=== PATIENT | female | born 1955 | race Caucasian/White ===

== ENCOUNTER → 2019-06-29 14:22 | Outpatient (CLI) | payer OTHER, SELFPAY ==
--- NOTE | 2019-06-29 14:29 | RAD_ITS ---
STUDY: X-RAY - LUMBAR SPINE REASON FOR EXAM: Female, 63 years old. Atraumatic lumbar spine pain. TECHNIQUE: 3 view(s) of the lumbar spine were obtained. COMPARISON: None FINDINGS: Generalized osteopenia. Normal lumbar lordosis. There is no substantial scoliosis. There is a normal alignment of the vertebrae. Normal vertebral bodies and endplates. Intervertebral disc space narrowing at L3-4, L4-5 and L5-S1. Diffuse facet sclerosis. Cholecystectomy clips. RAD/Lumbar Spine 2 or 3 Views IMPRESSION: Osteopenia with mild lower lumbar spondylosis. Electronically Signed: Tej Joe MD at 16:35 EST , Service support ,
== END ==
PROVIDERS: Family Provider Family Medicine; PCP Family Medicine; Referring Provider Anesthesiology Pain Medicine; Visit Provider Anesthesiology Pain Medicine
DX: M54.9 Dorsalgia, unspecified (principal)
CPT/HCPCS: 72100

== ENCOUNTER 2019-10-16 23:26 | Emergency (ER) | payer OTHER, SELFPAY ==
[2019-10-16 23:27] VITALS: BP 152/82; PULSE 103; RESP 15; TEMP 36.4; O2SAT 97; BMI 31.1
--- NOTE | 2019-10-16 23:36 | RAD_ITS ---
HISTORY: fell tonight, hip pain EXAMINATION/TECHNIQUE: XR AP pelvis and left hip 3 views COMPARISON: None FINDINGS: No fracture, dislocation, or acute osseous abnormality. The sacroiliac and hip joints appear preserved. As visualized, the soft tissues are negative. RAD/HIP, UNI W/ Pelvis 2-3 Views IMPRESSION: Negative for fracture or acute osseous abnormality. at 0051 Reported and signed by: Mario Hendrix MD Electronically Signed: Mario Hendrix, at 0:50 EST Tel , Service support ,
--- NOTE | 2019-10-16 23:36 | RAD_ITS ---
HISTORY: fell tonight,knee pain EXAMINATION/TECHNIQUE: XR left knee 4 views COMPARISON: None FINDINGS: Left total knee arthroplasty. The prosthetic components appear in good position. No fracture, dislocation, or prosthetic loosening identified. Normal bony alignment. No significant effusion identified. Superficial varix of the medial knee. RAD/Knee 4 or More Views IMPRESSION: 1. No fracture or acute osseous abnormality. 2. Left knee arthroplasty. No complication seen. 3. Superficial varix of the medial knee. at 0055 Reported and signed by: Mario Hendrix MD Electronically Signed: Mario Hendrix, at 0:54 EST Tel , Service support ,
--- NOTE | 2019-10-16 23:37 | ED.VIS.GEN ---
History of Present Illness Chief Complaint: Lower Extremity Injury Narrative: Patient is a 63-year-old female who presents with left knee and hip pain. She has been having increased left knee pain for about 2 weeks. She was line dancing tonight. She began to develop left hip pain. There was no fall, trauma, injury. She did take ibuprofen about 2 hours ago and has had no relief. No numbness, tingling, weakness. She denies any recent illness. Past Medical History - Allergies and Home Meds Allergies/Adverse Reactions: Allergies No Known Allergies Allergy (Verified 10/16/19 23:26) Primary Care Physician: Reno Beckett MD [Primary Care Provider] - Past Medical History: - - Hypertension Review of Systems All systems negative except as indicated General: Denies: Fever Cardiovascular: Denies: Chest pain Respiratory: Denies: Dyspnea Gastrointestinal: Denies: Nausea, Vomiting Musculoskeletal: Reports: - - Left hip and knee pain Skin: Denies: Rash Neurological: Denies: Headache Allergy: Denies: Uticaria Physical Exam Vital Signs/Narrative: Vital Signs Temp Pulse Resp BP Pulse Ox 10/16/19 23:27 97.6 F L 103 H 15 152/82 H 97 Inital Vital Signs reviewed: Yes General: Well nourished Head: Normocephalic Eyes: EOMI ENT: Moist mucous membranes Neck: Supple Cardiovascular: Regular rate Respiratory: No distress Extremities: - - Active full range of motion of the left hip and the left knee, I do not appreciate soft tissue swelling. Brisk capillary refill distally and normal sensation light touch easily palpable dorsalis pedis pulse, no focal bony tenderness patient does complain of pain with passive range of motion of the left hip and knee Neurological: Alert Psychological: Normal affect Diagnostic/Tx/Re-eval Impressions Hip/Pelvis X-Ray 10/16/19 23:36 IMPRESSION: Negative for fracture or acute osseous abnormality. at 0051 Reported and signed by: Mario Hendrix MD Electronically Signed: Mario Hendrix, at 0:50 EST Tel , Service support , Knee X-Ray 10/16/19 23:36 IMPRESSION: 1. No fracture or acute osseous abnormality. 2. Left knee arthroplasty. No complication seen. 3. Superficial varix of the medial knee. at 0055 Reported and signed by: Mario Hendrix MD Electronically Signed: Mario Hendrix, at 0:54 EST Tel , Service support , 10/16/19 23:36 HIP, UNI W/ Pelvis 2-3 Views [RAD] Stat Knee 4 or More Views [RAD] Stat - Medical Decision Making Imaging as above shows no acute fractures. Patient was given a [place] here. We will start her on naproxen and also provided a short course of [place] for right ear pain. She understands to return for new or worsening symptoms. She was also advised on supportive care. She was advised to follow-up with primary care physician and was discharged home. ED Disposition - Plan for ED Patient: Disposition: Home or Assisted Living Diagnosis: Hip sprain, Knee sprain Instructions: Knee Sprain, Hip Strain Prescriptions: Naproxen [Naprosyn] 500 mg PO BID #20 tablet Hydrocodone Bitart/Apap 5-325 [Rosed[place] 5MG-325MG] 1 tablet PO Q6H PRN PRN 3 Days #10 tablet PRN Reason: Pain Referrals: Reno Beckett MD [Primary Care Provider] -
[2019-10-17] MEDS: HYDROcodone Bitartrate/Apap 5/325 Tablet PO (01:07)
[2019-10-17 01:11] VITALS: BP 145/76; PULSE 78; RESP 18; O2SAT 98
== END 2019-10-17 01:44 | disposition home or self-care (01) ==
PROVIDERS: Emergency Provider Emergency Medicine; PCP Family Medicine
DX: S73.102A Unspecified sprain of left hip, initial encounter (principal); S83.92XA Sprain of unspecified site of left knee, initial encounter; Y93.41 Activity, dancing; I10 Essential (primary) hypertension; Z79.899 Other long term (current) drug therapy
CPT/HCPCS: 73502; 73564; 99283

== ENCOUNTER → 2021-03-23 15:26 | Outpatient (CLI) | payer OTHER, SELFPAY ==
--- NOTE | 2021-03-23 15:31 | RAD_ITS ---
STUDY: X-RAY - LUMBAR SPINE REASON FOR EXAM: Female, 65 years old. Low back pain TECHNIQUE: 3 view(s) of the lumbar spine were obtained. COMPARISON: 2018 FINDINGS: Normal lumbar lordosis. There is a levoscoliosis of the lumbar spine. There is a normal alignment of the vertebrae in the lateral view. There is multilevel endplate spondylosis of the lumbar vertebrae. There is multi-level degenerative disc disease with multi-level disc space narrowing. There is no demonstrated fracture. The soft tissue structures are unremarkable. RAD/Lumbar Spine 2 or 3 Views IMPRESSION: Degenerative changes of the spine, as detailed above. Levoscoliosis Electronically Signed: Nadir Hernandez MD at 13:47 EDT , Service support ,
== END ==
PROVIDERS: PCP Family Medicine; Referring Provider Anesthesiology Pain Medicine; Visit Provider Anesthesiology Pain Medicine
DX: M54.5 Low back pain (principal)
CPT/HCPCS: 72100

== ENCOUNTER → 2021-04-14 09:49 | Outpatient (CLI) | payer OTHER, SELFPAY ==
--- NOTE | 2021-04-14 09:57 | US_ITS ---
STUDY: RENAL ULTRASOUND - COMPLETE REASON FOR EXAM: Female, 65 years old. Recurrent UTIs. TECHNIQUE: Ultrasound evaluation of the kidneys was performed with real-time and static alexander-scale imaging. COMPARISON: None. FINDINGS: RIGHT KIDNEY: Normal location of the right kidney, which is normal in size. The right kidney measures 10.1 cm x 5 cm x 5.6 cm. There is a normal cortex of the right kidney. The renal cortex measures 1.7 cm. There is no right renal mass or cyst. There are no right renal calculi. There is no right hydronephrosis. DISTAL RIGHT URETER: There is non-visualization of the distal right ureter. There is no demonstrated right ureterovesical junction calculus. There is a visualized right ureteral jet. LEFT KIDNEY: Normal location of the left kidney, which is normal in size. The left kidney measures 10.5 cm x 4.6 x 2 x 4.9 cm. There is a normal cortex of the left kidney. The renal cortex measures 1.3 cm. There is no left renal mass or cyst. There are no left renal calculi. There is no left hydronephrosis. DISTAL LEFT URETER: There is non-visualization of the distal left ureter. There is no demonstrated left ureterovesical junction calculus. There is a visualized left ureteral jet. BLADDER: The distended urinary bladder has a volume of 53 ml. Limited evaluation due to suboptimal distention of the urinary bladder. US/Kidney and Bladder IMPRESSION: Normal ultrasound of the kidneys. Electronically Signed: Gene Amanda MD at 12:57 EDT , Service support ,
== END ==
PROVIDERS: PCP Family Medicine; Referring Provider Urology; Visit Provider Urology
DX: N39.0 Urinary tract infection, site not specified (principal)
CPT/HCPCS: 76770

== ENCOUNTER → 2021-04-20 16:54 | Outpatient (CLI) | payer OTHER, SELFPAY ==
--- NOTE | 2021-04-20 17:01 | MRI_ITS ---
STUDY: MRI LUMBAR SPINE WITHOUT CONTRAST REASON FOR EXAM: Female, 65 years old. BACK PAIN LEG PAIN TECHNIQUE: Standardized fat and water weighted pulse sequences were obtained in the sagittal and axial planes. COMPARISON: Lumbar spine radiographs 03/23/2021. FINDINGS: T10-T11, T11-T12 and T12-L1: (Sagittal only). Normal endplates. Mild disc space height narrowing. No ventral extradural defect. Normal central canal and bilateral intervertebral neural foramina. Normal lumbar lordosis. There is no substantial scoliosis. Normal conus medullaris that terminates at the lower L1 vertebral body level. L1-2: Normal endplates. Normal disc height, hydration and morphology. Normal bilateral facet joints. Normal central canal and bilateral lateral recesses. Normal bilateral intervertebral neural foramina. L2-3: MODIC type I and type II degenerative changes of the vertebral marrow underneath the irregular vertebral endplates. Pronounced disc space height narrowing. Prominent posterior marginal spurs causing flattening central canal stenosis. The AP canal diameter is 8.5 mm. Normal bilateral lateral recesses. Moderate degenerative facet arthropathy. Mild stenosis of the right intervertebral neural foramen. Normal left intervertebral neural foramen. L3-4: Anterior marginal spurs. Normal endplates. Moderately pronounced disc space height narrowing. Small posterior annular bulging disc. Prominent dorsal epidural lipomatosis. Mild bilateral degenerative facet arthropathy. Normal central canal and bilateral lateral recesses. Normal bilateral intervertebral neural foramina. L4-5: Normal endplates. Moderate disc space height narrowing. Mild degenerative anterolisthesis of L4 on L5. Small posterior cephalad disc protrusion. Mild central canal stenosis with an AP canal diameter 10 mm. Moderately pronounced right degenerative facet arthropathy and moderate left degenerative facet arthropathy. Mild stenosis of the left intervertebral neural foramen. Normal right intervertebral neural foramen. L5-S1: Normal endplates. Mild disc space height narrowing. Moderately pronounced asymmetric bilateral degenerative facet arthropathy, left greater than right. Normal central canal and bilateral lateral recesses. Normal bilateral intervertebral neural foramina. Normal visualized sacral ala. Normal visualized paraspinous soft tissue structures. MRI/Spine Lumbar (Routine) IMPRESSION: 1. Mild flattening central canal stenosis at L2-L3 disc space level with an AP canal diameter of 8.5 mm, mild stenosis of the right intervertebral neural foramen and pronounced L2-L3 disc space height narrowing with mixed MODIC type I and type II degenerative changes of the vertebral marrow underneath the right intervertebral endplates. 2. Mild central canal stenosis at L4-L5 disc space level with an AP canal diameter of 10 mm, mild degenerative anterolisthesis of L4 on L5 and small posterior midline cephalad disc protrusion. 3. Moderately pronounced asymmetric bilateral L5-S1 degenerative facet arthropathy, left greater than right. 4. No MRI evidence of lumbar extruded disc fragment. Electronically Signed: Kei Herrmann MD at 11:34 EDT , Service support ,
== END ==
PROVIDERS: PCP Family Medicine; Referring Provider Anesthesiology Pain Medicine; Visit Provider Anesthesiology Pain Medicine
DX: M54.16 Radiculopathy, lumbar region (principal); M54.17 Radiculopathy, lumbosacral region; M51.36 Other intervertebral disc degeneration, lumbar region; M51.37 Other intervertebral disc degeneration, lumbosacral region
CPT/HCPCS: 72148

== ENCOUNTER → 2022-01-03 | Outpatient (CLI) | payer OTHER, SELFPAY | END | disposition home or self-care (01) | PROVIDERS: PCP Family Medicine; Referring Provider Anesthesiology Pain Medicine; Visit Provider Anesthesiology Pain Medicine | DX: F11.20 Opioid dependence, uncomplicated (principal) ==

== ENCOUNTER → 2022-04-27 | Outpatient (CLI) | payer OTHER, SELFPAY | END | disposition home or self-care (01) | LOC: LAB 16:44 | PROVIDERS: PCP Family Medicine; Referring Provider Urology; Visit Provider Urology | DX: N39.0 Urinary tract infection, site not specified (principal); R30.0 Dysuria | CPT/HCPCS: 87086 ==

== ENCOUNTER 2022-05-08 16:30 | Outpatient (RCR) | payer OTHER, SELFPAY ==
--- NOTE | 2022-04-06 07:50 | HP.PTEVAL ---
Patient's Visit Information KARON EL is a 66 year old F referred to Physical Therapy by Dr. Chris Nieves MD with a diagnosis of Back pain. Date of Evaluation: 04/06/22 Physical Therapist: Lorenzo Farah DPT, OCS, CSCS - Visit Plan Frequency: 3x /Week Duration: 4-6 Weeks Plan: 3x/week for 4-6 weeks for. 1. LB ROM exercises. 2. rollout and stretch quad and HS and teach home stretches. 3. core strength and progress HEP, NS focus. 4. general machine strength LE and posture/core and progress to I. MH as helpful - Subjective LBP years and chronic , MRI has shown L45 problems. Up to 03/04 and 11/02 when on tramadol. Has slept in recliner as it is more comfortable for the last year. Has been treated with back injections for years for 3 months,. HE Wants her to see a back doctor but does not wish to do so. 2 TKA and L knee hurts. had MRI on R knee as it is swelling on the outside and R foot starting to drop. Has seen chiropractor and had body mechanics instruct. No exercises. 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 Will retire in january 2023. Hobbies included walking but has not been able to do that due to back and R leg and has not in 3 moihs, Used to walk 2 miles per day. Live with sig other, steps to enter one story house and 4 steps to enter with rail and no problem. Basic ADLs are getting done OK right now, hard to put shoes on due to bending stiff and painful. No numbness or tingling. - Pain LBP Pain Intensity (Out of 10): 3 Pain Intensity Range: 3, 8 - Objective Pateint ambulates I, transfer bed and chair I but hard to lie flat on bed, slighlty better with knees bent. Steps are reciprocal without rail has flat lordosis and is stiff in LB. Has R foot DF weakness. LN AROM ext max limited, flexion mod limited, SB B min limited, ext painful, fleion stiff. HS and quads mod tight, tender to palpation lateral R knee. L Df 25# and R is 50#, other strengths LE 4/5. core strength 3+/5. reflexes 2/3 patella and achilles. Sensation WNL to gross light touch in LE. - slump. - SLR - Balance/Special Test Scores Functional Gait Assessment Score: 28 % Disability: 6.6700 Oswestry Low Back Score: 19 - Goals Goal 1:: ST: Pain 2-3/10 at worst and 755 improved Goal Time Frame: 2-4 Weeks Goal 2:: I approp NS posture to manage pain Goal Time Frame: 2-4 Weeks Goal 3:: LT: 8 or less oswestry Goal Time Frame: 4-6 Weeks Goal 4:: I long filler cigar roller machine stretch, strength program and ROM to limit future problems. Goal Time Frame: 4-6 Weeks Goal 5:: Lie in bed comfortably without immediate discomfort. Goal Time Frame: 4-6 Weeks - Rehabilitation Potential Physical Therapy Diagnosis: Back pain Rehabilitation Potential: Good - Anticipated Interventions Patient/Client Instruction: Educate patient on: Condition, Plan of Care For the Purpose of:: To decrease pain, To increase ROM, To improve nutrient delivery to tissue, To improve muscle performance and motor function Therapeutic Exercise to Include: Strength training, Flexibilty training, Gait and locomotor training, Passive ROM, Active ROM, Dynamic Lumbar Stabilization For the Purpose of:: To decrease pain, To increase ROM, To improve nutrient delivery to tissue, To improve muscle performance and motor function Manual Therapy Techniques to Include: Mobilization, Soft tissue mobilization For the Purpose of:: To decrease pain, To increase ROM Thermo therapy (hot pack): Yes For the Purpose of:: To decrease pain Thank you for the opportunity to evaluate your patient. For Medicare and Medicare HMO plans, please review the plan of care and approve it. It will need to be FAXED BACK to us at [phone] for Medicare purposes. For Medicare only, by signing this I certify the plan of care. Please let me know if there are questions or concerns regarding this plan of care. Physician Signature: Date:
--- NOTE | 2022-05-08 17:28 | HP.PTDCSUM_ITS ---
It has been my pleasure to treat KARON EL referred by Dr. Chris Nieves MD, with the diagnosis of Back pain for a total of 13 visit(s). Discharge Date: 05/08/22 Please see the following information for a summary of their discharge status. Subjective: Overall body feeling much better. L knee not nearly as painful and not as stiff. LB is still in pain up to 7/10 until tramadol kicks in. Sleeps in bed on weekends but it makes her worse. Lizbeth wants her to see a back doctor. dre is more central. Bending over can hurt still.Sweeper and pulling we eds still hurt. Will get injection on thrusday. LBP Pain Intensity (Out of 10): 3 % Improvement: 30 Objective/Function: ROM is mod deficits flexion with pain, mod deficits ext with pain, SB are full and slight stretching. Overall feeling better in body but back still gives her fits and cannot lie in bed.Walks well. Goal 1:: ST: Pain 2-3/10 at worst and 755 improved Goal Progress: Progressing Goal 2:: I approp NS posture to manage pain Goal Progress: Goal Met, aware Goal 3:: LT: 8 or less oswestry Goal Progress: Progressing Goal 4:: I buttermaker continuous churn stretch, strength program and ROM to limit future problems. Goal Progress: Goal Met Goal 5:: Lie in bed comfortably without immediate discomfort. Goal Progress: Not Progressing Plan: d/c to gym adn HEP, pt looking forward to injection on Thrusday. If there are questions or concerns regarding this patient's physical therapy, please feel free to call me at [phone]. Thank you for the referral of this patient. Sincerely, Lorenzo Farah, DPT, OCS, CSCS Balance/Gait/Functional tests - Balance/Special Test Scores Functional Gait Assessment Score: 28 % Disability: 6.6700 Oswestry Low Back Score: 10
== END 2022-05-08 19:00 | disposition home or self-care (01) ==
LOC: PT 16:30
PROVIDERS: PCP Family Medicine; Referring Provider Anesthesiology Pain Medicine; Visit Provider Anesthesiology Pain Medicine
DX: M54.9 Dorsalgia, unspecified (principal)
CPT/HCPCS: 97110; 97140; 97161; 97164

== ENCOUNTER → 2023-02-06 | Outpatient (CLI) | payer OTHER, SELFPAY ==
[2023-02-06 12:48] LABS: Amphetamine Urine VISTA NEGATIVE (<1000 ng/mL); Barbiturate Urine VISTA NEGATIVE (< 200 ng/mL); Benzodiazepine Urine VISTA NEGATIVE (< 200 ng/mL); Cocaine Urine VISTA NEGATIVE (< 300 ng/mL); Ecstacy Urine VISTA NEGATIVE (< 500 ng/mL); Methadone Urine VISTA NEGATIVE (< 300 ng/mL); PCP Urine VISTA NEGATIVE (< 25 ng/mL); THC Urine VISTA NEGATIVE (< 50 ng/mL); Vista UDS pH Range 6
== END | disposition home or self-care (01) ==
PROVIDERS: PCP Family Medicine; Referring Provider Anesthesiology Pain Medicine; Visit Provider Anesthesiology Pain Medicine
DX: F11.20 Opioid dependence, uncomplicated (principal)
CPT/HCPCS: 80307

== ENCOUNTER 2023-02-21 08:00 | Outpatient (RCR) | payer OTHER, SELFPAY | END 2023-02-22 23:59 | LOC: DC 08:00 | PROVIDERS: PCP Family Medicine; Referring Provider Family Medicine; Visit Provider Family Medicine | DX: E11.65 Type 2 diabetes mellitus with hyperglycemia (principal); R14.3 Flatulence | CPT/HCPCS: 97802; 97803 ==

== ENCOUNTER 2023-03-27 08:59 | Outpatient (RCR) | payer MEDICARE, SELFPAY | END 2023-04-25 23:59 | LOC: DC 08:59 | PROVIDERS: PCP Family Medicine; Referring Provider Family Medicine; Visit Provider Family Medicine | DX: E11.65 Type 2 diabetes mellitus with hyperglycemia (principal); R14.3 Flatulence | CPT/HCPCS: 97803 ==

== ENCOUNTER 2023-05-08 08:00 | Outpatient (RCR) | payer MEDICARE, SELFPAY | END 2023-05-25 23:59 | LOC: DC 08:00 | PROVIDERS: PCP Family Medicine; Referring Provider Family Medicine; Visit Provider Family Medicine | DX: E11.65 Type 2 diabetes mellitus with hyperglycemia (principal); R14.3 Flatulence | CPT/HCPCS: 97803 ==

== ENCOUNTER 2023-06-12 07:53 | Outpatient (RCR) | payer MEDICARE, SELFPAY | END 2023-06-25 23:59 | LOC: DC 07:53 | PROVIDERS: PCP Family Medicine; Referring Provider Family Medicine; Visit Provider Family Medicine | DX: E11.65 Type 2 diabetes mellitus with hyperglycemia (principal) | CPT/HCPCS: 97803 ==

== ENCOUNTER 2023-07-11 08:04 | Outpatient (RCR) | payer MEDICARE, SELFPAY | END 2023-07-25 23:59 | LOC: DC 08:04 | PROVIDERS: PCP Family Medicine; Referring Provider Family Medicine; Visit Provider Family Medicine | DX: E11.65 Type 2 diabetes mellitus with hyperglycemia (principal); R14.3 Flatulence | CPT/HCPCS: 97803 ==

== ENCOUNTER → 2023-09-20 | Outpatient (CLI) | payer MEDICARE, SELFPAY ==
--- NOTE | 2023-09-20 10:54 | NM_ITS ---
CLINICAL: 67-year-old female with history of abdominal bloating. SEMI-SOLID PHASE 99m Tc SULFUR COLLOID GASTRIC EMPTYING STUDY COMPARISON: None available FINDINGS: The patient was administered 1.2 mCi of 99m Tc sulfur colloid mixed with oatmeal and consumed per os. Image acquisitions in the anterior-posterior projections were obtained for 60 minutes. There is prompt visualization of the stomach. There is no gastroesophageal reflux identified. The T ? raw data emptying was calculated to be 37.90 minutes, (Normal: 12-56 minutes). NM/Gastric Emptying Study IMPRESSION: 1. NORMAL 99m Tc sulfur colloid semi-solid phase (oatmeal) gastric emptying imaging examination. A. There is normal and preserved semi-solid phase gastric emptying compared to normal controls. (Torin et al, J Nucl Med Tech 38: 186, 2010). Electronically Signed: Júnior Grijalva DO at 9:09 EST ,
== END | disposition home or self-care (01) ==
PROVIDERS: PCP Family Medicine; Referring Provider Internal Medicine; Visit Provider Internal Medicine
DX: R14.0 Abdominal distension (gaseous) (principal)
CPT/HCPCS: 78264; A9541

== ENCOUNTER → 2023-11-12 | Outpatient (CLI) | payer MEDICARE, SELFPAY ==
[2023-11-12 10:27] LABS: CRP < 2.90 mg/L (0.0-3.0)
[2023-11-13 15:08] LABS: Endomysial Antibody IgA Negative (Negative); Immunoglobulin A 184 mg/dL (87-352); t-Transglutaminase IgA <2 U/mL (0-3)
== END | disposition home or self-care (01) ==
LOC: MTLAB 07:04
PROVIDERS: PCP Internal Medicine; Referring Provider Internal Medicine Gastroenterology; Visit Provider Internal Medicine Gastroenterology
DX: R10.9 Unspecified abdominal pain (principal)
CPT/HCPCS: 36415; 82784; 83516; 86140; 86255

== ENCOUNTER 2023-11-20 10:00 | Outpatient (RCR) | payer MEDICARE, SELFPAY ==
--- NOTE | 2023-10-25 13:55 | HP.PTREVAL ---
Re-Evaluation Intro: MIKAYLA Moran, It has been my pleasure to treat KARON EL over the last 1 visits for L IT band syndrome. Please see the progress note below for an update on the physical therapy plan of care! Plan Plan Plan: Aquatic therapy consisting of L LE stretching, L LE strengthening, and core stab ex's Balance/Gait/Functional tests Balance/Special Test Scores Lower Extremity Functional Score: 32 Goals Goals Goal 1:: Decrease L LE pain x 50% to aid with sleep Goal Time Frame: 4-6 Weeks Goal 2:: Increase L LE flexibility to WNL to aid with decreasing pain Goal Time Frame: 4-6 Weeks Goal 3:: I with HEP Goal Time Frame: 4-6 Weeks Anticipated Interventions Anticipated Interventions Patient/Client Instruction: Educate patient on: Condition and Plan of Care For the Purpose of:: To improve self management Therapeutic Exercise to Include: Strength training, Endurance training, Balance training, Flexibilty training, In an aquatic setting, Active ROM and Dynamic Lumbar Stabilization For the Purpose of:: To decrease pain, To increase ROM and To improve muscle performance and motor function Re-Evaluation Ending Re-evaluation ending: Please do not hesitate to contact me at [phone] by phone or if you have questions or concerns regarding this new plan of care! Sincerely, Ernesto Walter, PT, ATC
--- NOTE | 2023-11-22 07:30 | HP.PTDCSUM ---
Discharge Summary D/C summary: It has been my pleasure to treat KARON EL referred by MIKAYLA Moran, with the diagnosis of L IT band syndrome for a total of 10 visit(s). Discharge Date: Please see the following information for a summary of their discharge status. Subjective Subjective: Therapy really hasnt helped yet. My doctor thinks the IT band may have torn Pain L hip/leg pain: Pain Intensity (Out of 10): 8 Overall Improvement % Improvement: 40 Objective Objective/Function: L lateral leg pain is 8/10 Pt is I with HEP of L LE stretching Pt is still minimally limited with hamstring and IT band flexibility, mostly due to pain. Pt has shown minimal improvements at this time. Goals Goal 1:: Decrease L LE pain x 50% to aid with sleep Goal Progress: Not Progressing Goal 2:: Increase L LE flexibility to WNL to aid with decreasing pain Goal Progress: Progressing Goal 3:: I with HEP Goal Progress: Goal Met Plan Plan: Discontinue secondary to lack of improvements, RTD D/C Information d/c sentence: If there are questions or concerns regarding this patient's physical therapy, please feel free to call me at [phone]. Thank you for the referral of this patient. Sincerely, Ernesto Walter, PT, ATC Balance/Gait/Functional tests Balance/Special Test Scores Lower Extremity Functional Score: 29 Improvement % Improvement: 40
== END 2023-11-20 19:00 | disposition home or self-care (01) ==
LOC: PT 10:00
PROVIDERS: PCP Internal Medicine; Referring Provider Physician Assistant; Visit Provider Physician Assistant
DX: M76.30 Iliotibial band syndrome, unspecified leg (principal)
CPT/HCPCS: 97113; 97161

== ENCOUNTER → 2023-12-02 | Outpatient (CLI) | payer MEDICARE, SELFPAY ==
--- NOTE | 2023-12-02 08:00 | MRI_ITS ---
STUDY: MRI LEFT HIP REASON FOR EXAM: Female, 68 years old. Left hamstring tear. TECHNIQUE: Standardized fat and water weighted pulse sequences were obtained in all 3 orthogonal planes. COMPARISON: Pelvis and hip images dated 10/17/2019. FINDINGS: Moderate arthrosis of both hips with small hip effusions (coronal series 4 images 8-15). . Partial tear of the proximal right hamstring origin without associated edema. Findings are compatible with remote injury (coronal series 4 images 17-21). Bilateral greater trochanteric bursitis (coronal series 4 images 12-16). Normal superior and inferior pubic rami. Normal pubic symphysis. Normal ischial tuberosity. Normal origin of the hamstring tendons. Normal visualized iliac wing, sacroiliac joint, and sacral ala. Normal visualized soft tissue structures of the pelvis. MRI/Lower Ext Joint Only (Routine) IMPRESSION: Partial tear of the proximal right hamstring origin without associated edema, likely remote. Bilateral greater trochanteric bursitis. Moderate arthrosis of both hips with small hip effusions. Electronically Signed: Tej Joe MD at 16:03 EDT ,
--- NOTE | 2023-12-02 08:00 | MRI_ITS ---
STUDY: MRI LUMBAR SPINE WITHOUT CONTRAST REASON FOR EXAM: Female, 68 years old. DDD, RADICULOPATHY TECHNIQUE: Standardized fat and water weighted pulse sequences were obtained in the sagittal and axial planes. COMPARISON: MRI the lumbar spine dated April 20, 2021 FINDINGS: Normal lumbar lordosis. There is an S-shaped thorocolumbar scoliosis with a levoscoliosis of the thoracic spine and dextroscoliosis of the lumbar spine. Normal conus medullaris that terminates at the L1 level. No marrow edema or fracture or compression deformity is present. T12-L1: Moderate disc space narrowing with diffuse disc desiccation but no disc herniation or bulging. Mild Modic endplate degenerative signal. Slight retrolisthesis of T12 on L1 of less than 2 mm. Normal bilateral facet joints. Normal central canal and bilateral lateral recesses. Normal bilateral intervertebral neural foramina. L1-2: Normal endplates. Diffuse disc desiccation. Normal disc height and morphology. Normal bilateral facet joints. Normal central canal and bilateral lateral recesses. Normal bilateral intervertebral neural foramina. L2-3: Severe disc space narrowing with moderate Modic endplate degenerative signal. Small Schmorl''s node. Diffuse disc osteophyte complex with bilateral lateral recess stenosis and mild central canal stenosis. Mild facet joint and ligament of flavum hypertrophy. Normal bilateral intervertebral neural foramina. L3-4: Moderate to severe disc space narrowing with diffuse disc osteophyte complex. Mild facet joint and ligament of flavum hypertrophy and mild bilateral lateral recess stenosis. Normal central canal. Mild bilateral foraminal stenosis. L4-5: Moderate to severe disc space narrowing. Moderate Modic endplate degenerative changes and signal. Diffuse disc bulge. Anterolisthesis of L4 and L5 of 2 to 3 mm. Moderate facet joint and ligamenta flava hypertrophy and mild central canal stenosis as well as bilateral lateral recess stenosis with nerve root impingement. Moderate left foraminal stenosis with nerve root compression. Left foraminal disc protrusion causing nerve root compression and foraminal stenosis. Normal right neural foramen. L5-S1: Normal endplates. Diffuse disc desiccation with mild posterior disc space narrowing and broad-based disc herniation. Mild to moderate facet joint hypertrophy and fluid distention. Mild bilateral foraminal stenosis. Normal central canal and bilateral lateral recesses. Normal visualized sacral ala. Normal visualized paraspinous soft tissue structures. MRI/Spine Lumbar (Routine) IMPRESSION: 1. Multilevel degenerative changes, as described above. No significant interval change Electronically Signed: Ketan Rosas MD at 12:37 EDT ,
== END | disposition home or self-care (01) ==
PROVIDERS: PCP Internal Medicine
DX: M51.36 Other intervertebral disc degeneration, lumbar region (principal); M54.16 Radiculopathy, lumbar region
CPT/HCPCS: 72148; 73721

== ENCOUNTER → 2023-12-13 | Outpatient (CLI) | payer MEDICARE, SELFPAY ==
--- NOTE | 2023-12-13 | CYSPIN_PTH ---
PATIENT: KARON EL LOC: [facility] U#:[id number] AGE/SX: 68/F ROOM: RE12/13/[address]: Dr. Aniyah Rodriguez MD : 1955 BED: DIS: 12/13/2023 SPEC #: [id number] RECD: 12/16/23 10:12 STATUS: GARRET REMart #: [id number] LINDA: 12/13/23 00:[address]: Aniyah Rodriguez DEPT: CYTOLOGY RECD BY: Jeremy Montiel ENTERED: 12/16/23 10:13 SP TYPE: CYSPIN FL OTHR DR: Dr. Pati Horvath MD Tissues: Urine Procedures: Pap Stain (control) Special Stain Group II Cytospin Fluid HEADER OPERATION: Not noted PRE-OP DIAGNOSIS: Gross hematuria TISSUE SUBMITTED: Urine for cytology DIAGNOSIS CYTOLOGY Urine for cytology (cytospin): Negative for high grade urothelial carcinoma (NHGUC), Catrina System Category II. See comment. SJ/ 12/16/2023 COMMENT Organisms consistent with bacteria are noted. Clinical correlation and appropriate follow up are necessary. The Catrina System for urine cytology diagnostic categorization was used in the evaluation of this case. CYTOLOGY STUDY Slides are reviewed. CYTOLOGY GROSS Received is 30 ml of light-yellow cloudy fluid labeled with the patient's name and and designated per the requisition as urine. Submitted for cytology preparation. mr 12/16/23 TC:5 CPT: 38499
[2023-12-13 20:55] LABS: Cytology, Body Fluid / CSF SEE PATHOLOGY REPORT
== END | disposition home or self-care (01) ==
PROVIDERS: PCP Internal Medicine; Referring Provider Urology; Visit Provider Urology
DX: R31.0 Gross hematuria (principal)
CPT/HCPCS: 88108; 88313

== ENCOUNTER → 2023-12-16 | Outpatient (CLI) | payer MEDICARE, SELFPAY ==
[2023-12-16 12:07] LABS: Absolute Lymphocyte Count 1.54 X10^3/uL (0.83-4.51); Basophil# 0.03 X10^3/uL; Basophil% 0.4 % (0-1); Eosinophil# 0.22 X10^3/uL; Hematocrit 42.6 % (37-47); Lymphocyte # 1.54 X10^3/ul (0.83-4.51); Lymphocyte % 20.7 % (19-41); Mean Corp Hgb Conc 32.9 g/dL (32-36); Mean Corpuscular Hgb 29.7 pg (27.0-32.0); Mean Corpuscular Volume 90.4 fL (81-99); Mean Platelet Vol. 9.9 fl (6.2-12.0); Monocyte# 0.58 X10^3/uL; Monocyte% 7.8 % (0-10); NRBC Flagged by Analyzer 0 % (0-5); Neutrophil # 5.01 X10^3/uL (2.7-7.7); Neutrophil % 67.4 % (47-70); Platelet Count 212 K/mm3 (150-450); RBC Distribution Width CV 12.6 % (11.6-14.6); RBC Distribution Width SD 41.4 fl (35.1-43.9); Red Blood Count 4.71 M/mm3 (4.2-5.4); White Blood Count 7.4 K/mm3 (4.4-11.0)
[2023-12-16 12:16] LABS: AST(SGOT) 14 U/L (15-37); Alanine Aminotransfer ALT/SGPT 25 U/L (13-56); Albumin, Serum 3.4 g/dL (3.2-5.0); Alkaline Phosphatase 131 U/L (45-117); Anion Gap 4 (5-15); BUN 20 mg/dL (7-18); Chloride 105 mmol/L (98-107); Cholesterol 235 mg/dL (200); EST Glomerular Filtration Rate 58 mL/min (>60); Est Glom Filt Rate - Afr Amer 71 mL/min (>60); Globulin 3.4 g/dL (2.2-4.2); Glucose 192 mg/dL (74-106); High Density Lipoprotein 94 mg/dL; Potassium 4.3 mmol/L (3.5-5.1); Protein, Total 6.8 g/dL (6.4-8.2); Sodium Level 139 mmol/L (136-145); Triglycerides 130 mg/dL; Very Low Density Lipoprotein 26 mg/dL (5-40)
[2023-12-16 12:37] LABS: Microalbumin,Random Urine 9.4 mg/L (NO RANGE EST.); Microalbumin:Creatinine Ratio 8.2 mg/g CRE (<30 mg/g CRE)
== END | disposition home or self-care (01) ==
LOC: BIMLAB 08:00
PROVIDERS: PCP Internal Medicine; Visit Provider Internal Medicine
DX: E11.9 Type 2 diabetes mellitus without complications (principal); E55.9 Vitamin D deficiency, unspecified
CPT/HCPCS: 36415; 80053; 80061; 82043; 82306; 82570; 85025

== ENCOUNTER → 2024-06-12 | Outpatient (CLI) | payer MEDICARE, SELFPAY ==
--- NOTE | 2024-06-12 15:36 | RAD_ITS ---
EXAM: XR RIGHT WRIST COMPLETE, 3 OR MORE VIEWS CLINICAL INDICATION: Right wrist pain TECHNIQUE: Frontal, lateral and oblique views of the right wrist. COMPARISON: No relevant prior studies available. FINDINGS: BONES/JOINTS: Degenerative changes of the first carpometacarpal joint. No acute fracture. No subluxation. Normal alignment. No sclerotic or destructive changes observed. SOFT TISSUES: Unremarkable. No soft tissue swelling or gas. No radiopaque foreign body. RAD/Wrist min 3 Views IMPRESSION: Degenerative changes of the first carpometacarpal joint. Electronically Signed: Ernesto Nguyen MD at 14:59 EDT ,
== END | disposition home or self-care (01) ==
LOC: RAD 15:34
PROVIDERS: PCP Internal Medicine; Referring Provider Surgery Plastic and Reconstructive Surgery; Visit Provider Surgery Plastic and Reconstructive Surgery
DX: M25.531 Pain in right wrist (principal)
CPT/HCPCS: 73110

== ENCOUNTER → 2024-09-30 | Outpatient (CLI) | payer MEDICARE, SELFPAY ==
[2024-09-30 12:31] LABS: Absolute Lymphocyte Count 1.66 X10^3/uL (0.83-4.51); Absolute Neutrophil Count 3.4 X10^3/uL (2.0-7.7); Basophil# 0.02 X10^3/uL; Basophil% 0.3 % (0-1); Eosinophil# 0.31 X10^3/uL; Eosinophils% 5.2 % (0-5); Hematocrit 42.5 % (37-47); Hemoglobin 13.7 g/dL (12.0-15.0); Lymphocyte # 1.66 X10^3/ul (0.83-4.51); Lymphocyte % 27.9 % (19-41); Mean Corp Hgb Conc 32.2 g/dL (32-36); Mean Corpuscular Hgb 28.9 pg (27.0-32.0); Mean Corpuscular Volume 89.7 fL (81-99); Monocyte# 0.55 X10^3/uL; Monocyte% 9.3 % (0-10); NRBC Flagged by Analyzer 0 % (0-5); Neutrophil # 3.38 X10^3/uL (2.7-7.7); Platelet Count 227 K/mm3 (150-450); RBC Distribution Width CV 12.6 % (11.6-14.6); RBC Distribution Width SD 41.6 fl (35.1-43.9); Red Blood Count 4.74 M/mm3 (4.2-5.4); White Blood Count 5.9 K/mm3 (4.4-11.0)
[2024-09-30 13:10] LABS: AST(SGOT) 18 U/L (15-37); Alanine Aminotransfer ALT/SGPT 20 U/L (13-56); Albumin, Serum 3.5 g/dL (3.2-5.0); Alkaline Phosphatase 124 U/L (45-117); Anion Gap 5 (5-15); BUN 21 mg/dL (7-18); BUN/Creat Ratio 22.8 RATIO (10-20); Calcium,Total 9.4 mg/dL (8.5-10.1); Chloride 105 mmol/L (98-107); Cholesterol 221 mg/dL (200); Creatinine, Serum 0.92 mg/dL (0.55-1.02); EST Glomerular Filtration Rate 64 mL/min (>60); Est Glom Filt Rate - Afr Amer 77 mL/min (>60); Globulin 3.4 g/dL (2.2-4.2); Glucose 117 mg/dL (74-106); High Density Lipoprotein 86 mg/dL; Potassium 4.2 mmol/L (3.5-5.1); Protein, Total 6.9 g/dL (6.4-8.2); Sodium Level 139 mmol/L (136-145); Triglycerides 141 mg/dL; Very Low Density Lipoprotein 28 mg/dL (5-40)
[2024-09-30 14:10] LABS: Hemoglobin A1c 6.2 % (3.8-5.6)
== END | disposition home or self-care (01) ==
LOC: BIMLAB 08:24
PROVIDERS: PCP Internal Medicine; Referring Provider Physician Assistant; Visit Provider Physician Assistant
DX: I10 Essential (primary) hypertension (principal); E11.9 Type 2 diabetes mellitus without complications; E78.2 Mixed hyperlipidemia
CPT/HCPCS: 36415; 80053; 80061; 83036; 85025

== ENCOUNTER 2024-12-06 01:50 | Emergency (ER) | payer MEDICARE, SELFPAY ==
[2024-12-06 01:51] VITALS: BP 155/107; PULSE 101; RESP 16; TEMP 36.4; O2SAT 97; BMI 32.5
--- NOTE | 2024-12-06 01:53 | EDS_ITS ---
HPI History of Present Illness Chief Complaint: GI Bleed [facility] Medical History Hyperlipemia Hypertension Carpal tunnel syndrome Arthritis Interstitial cystitis Diabetes Home Medications ?Medication ?Instructions ?Recorded ?Last Taken ?Type ascorbate calcium (vitamin C) 500 500 mg PO DAILY 08/26 02/16 Unknown History mg tablet aspirin 81 mg tablet,delayed 81 mg PO DAILY 09/10/23 U nknown History release (Adult Aspirin Regimen) cholecalciferol (vitamin D3) 10 10 mcg PO DAILY Unknown History mcg (400 unit) capsule docusate sodium 50 mg capsule 50 mg PO DAILY 09/10/23 Unknown History furosemide 20 mg tablet 20 mg PO Q OTHER DAY PRN nolberto ma 09/10/23 Unknown History meloxicam 7.5 mg tablet 15 mg PO DAILY 09/10/23 Unkn own History tizanidine 4 mg capsule 4 mg PO DAILY 09/10/23 Unkno wn History tramadol 50 mg tablet 25 mg PO Q12H 10/18/23 Unkno wn History d-mannose 500 mg capsule 2,000 mg PO DAILY 09/30/24 U nknown History semaglutide 1 mg/dose (4 mg/3 mL) 1 mg (0.75 mL) subcu t QWEEK #9 mL 11/18/24 Unknown Rx subcutaneous pen injector losartan 50 mg-hydrochlorothiazide 1 tab PO DAILY #90 tabs 11/25/24 Unknown Rx 12.5 mg tablet meclizine 25 mg tablet 25 mg PO TID #30 tabs Unknown Rx solifenacin 5 mg tablet 5 mg PO QDAY 12/04/24 Unknow n History Allergy/AdvReac Type Severity Reaction Status Date / Time acetaminophen (From Vicodin) AdvReac Mild Nausea Verified 12/04/24 07:28 hydrocodone (From Vicodin) AdvReac Mild Nausea Verified 12/04/24 07:28 Family History Mother Kidney stones Arthritis Hypertension Sister Asthma Diabetes Grandmother Blood clot in vein Breast cancer Aunt Breast cancer Sister Depression Diabetes Grandfather Diabetes Father CAD (coronary artery disease) Heart disease Surgical History History of Mohs surgery for squamous cell carcinoma of skin S/P trigger finger release S/P cholecystectomy History of carpal tunnel release History of surgical procedure S/P anterior colporrhaphy H/O: hysterectomy H/O colectomy H/O arthroscopic knee surgery Total knee replacement status Social History adopted: No household members: significant other current occupational status: retired 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 EXAM Physical Exam Const Vital Signs: 12/06/24 01:51 12/06/24 03:45 12/06/24 04:08 Temperature 97.5 F L 98.1 F 98.1 F Temperature Source Oral Oral Pulse Rate 101 H 81 83 Respiratory Rate 16 16 16 Blood Pressure 155/107 H 140/69 H 151/66 H Blood Pressure Mean 123 92 94 Pulse Ox 97 97 96 Oxygen Delivery Method Room Air Room Air MDM MDM MDM Narrative Medical decision making narrative: HISTORY OF PRESENT ILLNESS: Chief complaint: GI bleed 69-year-old female history of BPPV, VINNIE, type diabetes hyperlipidemia, hypertension, constipation presents with concern for GI bleed. The patient states she has been experiencing dizziness for the past 3 weeks. She notes today she has had 3 bright red stools since noon. She endorses lower abdominal pain and cramping. Denies chest pain, shortness of breath. Denies history of bleeding diathesis. Assess for hemophilia or blood thinner use. Unknown if she is hemorrhoids. Denies vomiting. Dizziness exacerbated with movement. Is unsure if she has history of BPPV although this is listed in her chart if she is on meclizine. Denies head trauma or headaches. Denies focal numbness weakness or loss sensation. Denies any lack of coordination REVIEW OF SYSTEMS: Pertinent positives: Dizziness, bright red blood per rectum Pertinent negatives: Chest pain, syncope, shortness of breath, focal weakness or tingling PHYSICAL EXAM: Nursing triage notes reviewed, Vital signs reviewed Constitutional: please see [facility] HENT: MMM, no nystagmus Eyes: Pupils equal round and reactive to light, Extraocular muscles intact Neck: No stridor, no JVD, full neck ROM Lungs: Clear to auscultation, No wheezing or rales. No increased work of breathing, no conversational dyspnea, no accessory muscle use, no nasal flaring. No respiratory distress noted Heart: Regular rate and rhythm, No murmurs, No rubs and No gallops, 2+ distal pulses (radial, femoral, posterior tibial) in all extremities Abdomen: Soft, lower abdomen TTP but no rigidity, rebound or guarding, no obvious peritoneal signs, no palpable pulsatile abdominal masses, no auscultated abdominal bruit : No CVAT Extremities: No edema Rectal: Performed with refrigeration mechanic in room Neuro: Neuroexam at baseline, alert and orient x 3, no new focal neurological deficits, cranial nerves II through XII intact, 5/5 strength in all present extremities. Intact sensation to light touch in all present extremities, 2+ reflexes bilateral patella tendons. Intact coordination. No extremity or truncal ataxia patient ambulate without an ataxic gait Skin: No rash or lesions noted MEDICAL DECISION MAKING: Chief Complaint: please see [facility] External records reviewed: Reviewed prior CBC from September 2024 showed hemoglobin 13.7, hematocrit of 42.5. Reviewed prior medications. No blood thinners noted Factors affecting care: as per HPI Social determinants of health: none History obtained from others: Consults: none [facility] Narrative: The patient was initially hemodynamically stable, afebrile, nontoxic-appearing. Initial neurologic exam was nonfocal. No signs of ataxia, nystagmus or signs of posterior circulation CVA. Abdominal exam with lower TTP but no obvious peritoneal signs. The patient sat up in bed and had approximately 3 seconds of fatigable dizziness consistent with likely BPPV. I considered the following differential diagnosis: Anemia, GI bleed, food induced stool color changes I obtained a broad lab and imaging workup to further elucidate etiology of the patient's complaints. Initially treat the patient 1 L normal saline. Offered meclizine, Versed for additional dizziness stabilization but patient refused stating she only dizzy when she moves. She does not wish to have any medications at this time. ALL IMAGES (IF OBTAINED) HAVE BEEN PERSONALLY REVIEWED AND INTERPRETED BY MYSELF. Occult stool sample positive CBC with no leukocytosis to suggest systemic inflammation, no anemia (hemoglobin 13, hematocrit 38.6), no thrombocytopenia High-sensitivity troponin is negative, no evidence of myocardial ischemia CMP without evidence of acute kidney injury, significant electrolyte abnormality, anion gap to suggest end organ hypo-perfusion, no evidence of metabolic acidosis with a normal bicarbonate, no evidence of hepatobiliary obstructive pathology. I have personally reviewed the patient's chest x-ray. Chest x-ray is unremarkable for pulmonary edema, pneumothorax, pneumonia or focal cardiopulmonary abnormality. No coagulopathy noted on coagulation studies. CT scan of the brain shows no evidence of obvious ICH or mass, no evidence of obvious ischemia CT scan abdomen pelvis shows evidence of colitis Upon reassessment patient blood pressure improved, heart rate improved. The synthesis of the patient history, physical exam, labs images suggest acute GI bleed secondary to colitis. I do not suspect the patient has invasive diarrheal illness as she has no sick contacts travel, new foods, no fever, no leukocytosis she does not appear toxic and does not have significant abdominal tenderness. I do not feel the patient needs antibiotics at this time. Will give GI follow-up to determine if she would benefit from antibiotics or steroids. Strict return precautions were discussed. Given patient's hemodynamically stable and is not simply anemic is on a blood thinner she is not required mission at this time. The patient and/or family, caregivers express understanding. The patient and/or family, caregivers agrees with the plan. Shared decision making: I will have a discussion with the patient and or visitors regarding risk/benefits of further testing or admission. They will be made aware of of the risk/benefits inherent in this decision they will be given the opportunity to voice understanding. Total critical care time today provided was at least 0 minutes. This excludes separately billable procedures. Critical care time (if documented) is secondary to the patient having high probability of clinically significant/life threatening deterioration in the patient's condition which required my urgent intervention. Impression: 1. Bright red blood per rectum 2. GI bleed 3. BPPV 4. Colitis Dispo: Discharge home This note was generated with [employer] dictation software. It may contain incorrect words, spelling, and punctuation that were not noted in review of the chart prior to signing. Lab Data Labs: Laboratory Results - last 24 hr 12/06/24 02:13 WBC 10.6 RBC 4.37 Hgb 13.0 Hct 38.6 MCV 88.3 MCH 29.7 MCHC 33.7 RDW Std Deviation 41.9 RDW Coeff of Keisha 13.0 Plt Count 203 MPV 9.1 Immature Gran % (Auto) 0.400 Neut % (Auto) 77.8 H Lymph % (Auto) 11.5 L [place] % (Auto) 8.3 Eos % (Auto) 1.7 Baso % (Auto) 0.3 Absolute Neuts (auto) 8.2 H Absolute Lymphs (auto) 1.21 Nucleated RBC % 0 PT 13.0 INR 1.0 APTT 27.8 Sodium 140 Potassium 3.8 Chloride 107 Carbon Dioxide 22.6 Anion Gap 11 BUN 24 H Creatinine 0.93 Estim Creat Clear Calc 57.55 Est GFR (MDRD) Non-Af 66 BUN/Creatinine Ratio 25.6 H Glucose 153 H Calcium 9.0 Total Bilirubin 0.35 AST 22 ALT 12 Alkaline Phosphatase 128 H Troponin T High Sens 13 Total Protein 6.4 Albumin 3.9 Globulin 2.5 Albumin/Globulin Ratio 1.5 Radiography Chest X-Ray - ED: Read by ED Physician Diagnostic Testing: Clinical Impression(s) from Imaging Studies Abdomen/Pelvis CT 12/06/24 02:08 IMPRESSION: 1. Circumferential wall thickening of the sigmoid colon and descending colon with pericolonic inflammatory stranding likely relating to a colitis on an infectious or inflammatory basis. 2. Additional findings as above. Reading Location: [facility] Brain CT 12/06/24 02:08 IMPRESSION: 1. No acute intracranial process. If clinical concern for acute ischemia, MRI is a more sensitive exam. 2. Mild chronic small vessel ischemic disease. 3. Atrophy. Reading Location: [facility] Chest X-Ray 12/06/24 03:00 IMPRESSION: No acute cardiopulmonary process. Reading Location: [facility] Discharge Plan Triage Chief Complaint: GI Bleed ED Provider: Andrea Evans Dx/Rx/DC Orders Instructions: ED Understanding Colitis Prescriptions: No Action meloxicam 7.5 mg tablet 15 mg PO DAILY tizanidine 4 mg capsule 4 mg PO DAILY furosemide 20 mg tablet 20 mg PO Q OTHER DAY PRN (Reason: edema) cholecalciferol (vitamin D3) 10 mcg (400 unit) capsule 10 mcg PO DAILY ascorbate calcium (vitamin C) 500 mg tablet 500 mg PO DAILY aspirin [Adult Aspirin Regimen] 81 mg tablet,delayed release (DR/EC) 81 mg PO DAILY docusate sodium 50 mg capsule 50 mg PO DAILY d-mannose 500 mg capsule 2,000 mg PO DAILY tramadol 50 mg tablet 25 mg PO Q12H solifenacin 5 mg tablet 5 mg PO QDAY meclizine 25 mg tablet 25 mg PO TID Qty: 30 0RF semaglutide 1 mg/dose (4 mg/3 mL) pen injector 1 mg subcut QWEEK Qty: 9 1RF Rx Instructions: for 4 weeks losartan-hydrochlorothiazide 50-12.5 mg tablet 1 tab PO DAILY Qty: 90 1RF Primary Care Provider: Pati Horvath Referrals: Jaime Rothman, [Med Staff - Active Staff] - Activity Restrictions/Additional Instructions: Thank you for trusting us with your care today! Your labs images were overall reassuring. Your stool was positive for bleeding. Your CT scan showed evidence of inflammation in your colon called colitis. Your presentation does not seem to be related to the infection (no fever, no elevated white blood cell count). It could be inflammatory in origin. Will require outpatient GI follow-up. The remainder of your labs images are reassuring specifically no signs of damage to your brain on CT scan. Your blood counts were stable. Hemoglobin was not low. You are not significantly anemic. Please take Tylenol (2 pills, 650 mg), Ibuprofen (2 pills, 400 mg) every 6 hours as needed for pain and fever control. Please return to the emergency department if your symptoms change or worsen. Please follow with Gastroenerology (Dr. Rothman) for further outpatient evaluation and management. Print Language: Czech Disposition Disposition: Home, Self Care Discharge Date/Time: 12/06/24 04:13
--- NOTE | 2024-12-06 02:08 | CT_ITS ---
PROCEDURE: ABDOMEN/PELVIS W IV CONT ONLY 12/06/2024 REASON FOR EXAM: LOWER ABDOMINAL PAIN, BRBPR TECHNIQUE: Abdomen and pelvis CT with intravenous contrast. Coronal and Sagittal reconstruction series were provided. One or more dose reduction techniques were used (e.g., Automated exposure control, adjustment of the mA and/or kV according to patient size, use of iterative reconstruction technique. RADIATION DOSE SUMMARY: CTDlvol: 928.6 mGy DLP: 926 mGycm COMPARISON: None. FINDINGS: Lung bases demonstrates dependent atelectasis. And spleen enhance homogeneously. Gallbladder is surgically absent. Pancreas, biliary system, and adrenal glands are unremarkable. Abdominal aorta demonstrates normal caliber. Bilateral kidneys enhance homogeneously without hydronephrosis. Urinary bladder is smoothly contoured. There is wall thickening of the sigmoid colon and descending colon with pericolonic inflammatory stranding. No colonic obstruction is identified. There is moderate retained stool in the right colon. Appendix is intact. Small bowel demonstrates a normal caliber. No free air or free fluid is identified. Evaluation of the osseous structures demonstrates no acute findings. Degenerative changes are identified. There is levoscoliosis of the lumbar spine. CT/Abdomen/Pelvis W IV Cont ONLY IMPRESSION: 1. Circumferential wall thickening of the sigmoid colon and descending colon wi th pericolonic inflammatory stranding likely relating to a colitis on an infectious or inflammatory basis. 2. Additional findings as above. Reading Location: [facility]
--- NOTE | 2024-12-06 02:08 | CT_ITS ---
PROCEDURE: BRAIN/HEAD WITHOUT CONTRAST 12/06/2024 REASON FOR EXAM: DIZZINESS TECHNIQUE: Head CT without intravenous contrast. Coronal and Sagittal reconstruction series were provided. One or more dose reduction techniques were used (e.g., Automated exposure control, adjustment of the mA and/or kV according to patient size, use of iterative reconstruction technique. RADIATION DOSE SUMMARY: CTDlvol: 779 mGy DLP: 779 mGycm COMPARISON: None. FINDINGS: There is prominence of the ventricles and sulci indicative of atrophy. Mild periventricular and deep white matter hypoattenuation likely relates to chronic small vessel ischemic disease. No midline shift, mass effect, or extra-axial fluid collections are identified. No acute intracranial hemorrhage, mass, or acute territorial infarction is present per CT criteria. Mir-white junction is preserved. Calvarium is intact. Visualized paranasal sinuses demonstrates a mucous retention cyst or polyp in the right maxillary sinus measuring [address]/Brain/Head without Contrast IMPRESSION: 1. No acute intracranial process. If clinical concern for acute ischemia, MRI i s a more sensitive exam. 2. Mild chronic small vessel ischemic disease. 3. Atrophy. Reading Location: [facility]
--- NOTE | 2024-12-06 02:09 | EKG12_ITS ---
Test Reason : GI BLEED Blood Pressure : */* mmHG Vent. Rate : 78 BPM Atrial Rate : 78 BPM P-R Int : 178 ms QRS Dur : 68 ms QT Int : 388 ms P-R-T Axes : 43 4 34 degrees QTcB Int : 442 ms Sinus rhythm with sinus arrhythmia with occasional Premature ventricular complexes Otherwise normal ECG No previous ECGs available Confirmed by Leon Diamond ([id number]), online content editor FABIO MORILLO ([id number]) on 12/09/2024 10:06:13 AM Referred By: Confirmed By: Leon Diamond
[2024-12-06] MEDS: 0.9% Normal Saline (1000mL) 1,000 ML 1000 ML IV (02:22)
[2024-12-06 02:23] LABS: Absolute Lymphocyte Count 1.21 X10^3/uL (0.83-4.51); Absolute Neutrophil Count 8.2 X10^3/uL (2.0-7.7); Basophil# 0.03 X10^3/uL; Basophil% 0.3 % (0-1); Eosinophil# 0.18 X10^3/uL; Eosinophils% 1.7 % (0-5); Hematocrit 38.6 % (37-47); Lymphocyte # 1.21 X10^3/ul (0.83-4.51); Lymphocyte % 11.5 % (19-41); Mean Corp Hgb Conc 33.7 g/dL (32-36); Mean Corpuscular Hgb 29.7 pg (27.0-32.0); Mean Corpuscular Volume 88.3 fL (81-99); Mean Platelet Vol. 9.1 fl (6.2-12.0); Monocyte# 0.88 X10^3/uL; Monocyte% 8.3 % (0-10); NRBC Flagged by Analyzer 0 % (0-5); Neutrophil # 8.21 X10^3/uL (2.7-7.7); Neutrophil % 77.8 % (47-70); Platelet Count 203 K/mm3 (150-450); RBC Distribution Width SD 41.9 fl (35.1-43.9); Red Blood Count 4.37 M/mm3 (4.2-5.4); White Blood Count 10.6 K/mm3 (4.4-11.0)
[2024-12-06 02:43] LABS: Troponin T High Sensitivity 13 ng/L (<=14)
--- NOTE | 2024-12-06 03:00 | RAD_ITS ---
PROCEDURE: CHEST 1 VIEW (PORTABLE) 12/06/2024 REASON FOR EXAM: DIZZINESS TECHNIQUE: Frontal view of the chest. COMPARISON: None. FINDINGS: Cardiac size and pulmonary vasculature are within normal limits. No consolidation, pleural effusion, or pneumothorax is present. RAD/Chest 1 View (Portable) IMPRESSION: No acute cardiopulmonary process. Reading Location[facility]
[2024-12-06 03:09] LABS: ALB/GLOB Ratio 1.5 RATIO (0.9-2.4); AST(SGOT) 22 U/L (<=31); Alanine Aminotransfer ALT/SGPT 12 U/L (<=34); Albumin, Serum 3.9 g/dL (3.4-4.8); Alkaline Phosphatase 128 U/L (35-104); Anion Gap 11 (5-15); BUN 24 mg/dL (4-19); BUN/Creat Ratio 25.6 RATIO (10-20); Carbon Dioxide 22.6 mmol/L (21.0-32.0); Chloride 107 mmol/L (98-108); Creatinine, Serum 0.93 mg/dL (0.70-1.20); EST Glomerular Filtration Rate 66 (>60); Estimated Creatinine Clearance 57.55 ml/min (50-250); Globulin 2.5 g/dL (2.2-4.2); Glucose 153 mg/dL (70-99); Potassium 3.8 mmol/L (3.3-5.1); Protein, Total 6.4 g/dL (5.9-8.4); Sodium Level 140 mmol/L (133-145); Total Bilirubin 0.35 mg/dL (0.00-1.30)
[2024-12-06 03:17] LABS: Partial Thromboplast Time 27.8 Seconds (24.1-36.2)
[2024-12-06 03:45] VITALS: BP 140/69; PULSE 81; RESP 16; TEMP 36.7; O2SAT 97
[2024-12-06 04:08] VITALS: BP 151/66; PULSE 83; RESP 16; TEMP 36.7; O2SAT 96
== END 2024-12-06 04:13 | disposition home or self-care (01) ==
PROVIDERS: Emergency Provider Emergency Medicine; PCP Internal Medicine; Visit Provider Emergency Medicine
DX: K92.2 Gastrointestinal hemorrhage, unspecified (principal); I10 Essential (primary) hypertension; K52.9 Noninfective gastroenteritis and colitis, unspecified; H81.10 Benign paroxysmal vertigo, unspecified ear; E78.5 Hyperlipidemia, unspecified; Z79.82 Long term (current) use of aspirin; Z79.899 Other long term (current) drug therapy
CPT/HCPCS: 70450; 71045; 74177; 80053; 82274; 84484; 85025; 85610; 85730; 93005; 96360; 99284; Q9967; A4216

== ENCOUNTER 2024-12-25 08:00 | Outpatient (RCR) | payer MEDICARE, SELFPAY ==
--- NOTE | 2024-12-09 10:44 | HP.PTEVAL_ITS ---
Patient's Visit Information Visit Information Visit Information: KARON EL is a 69 year old F referred to Physical Therapy by Dr. Pati Horvath MD with a diagnosis of BPPV. Date of Evaluation: 12/09/24 Physical Therapist: Lorenzo Farah, DPT, OCS, CSCS Visit Plan Frequency: 1x/Week Duration: 4-6 Weeks Plan: weekly as needed x 2-4 for positional treatments and balance + R HD today and then - after R chapin. Subjective Subjective: 3 weeks vertigo after sitting up Insidously. Bad for 2-3 days, Did chapin online and helped but not completely. Currently gets dizzy with bending or looking up, describd as funny feeling in head. Lasts a few seconds then normal in between episodes but has to be careful. Sleep in recliner due to back so gts some dizzy for a fw seconds and careful getting up. No falls. Sleep is OK. 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 Hobbies: walking and can do that. Walks dog Objective Objective: Walks into PT feeling OK but hesitant with movements. I with balance. Transfers bed and chair I. cervical aROM WFL and without pain, symmnetrical. UE AROM WNL and strength 4/5 - L Hallpike mary kate + R hallpike mary kate for 12 second up torsional obvious nystagmus and dizzyness. Treated with R modifid chapin adn then - HD. Balance/Special Test Scores Functional Gait Assessment Score: 25 % Disability: 16.6700 Dizziness Score: 34 Goals Goal 1:: Abolish dizzyness for 4 days with head movements Goal Time Frame: 2-4 Weeks Goal 2:: - B hallpike mary kate testing Goal Time Frame: 2-4 Weeks Goal 3:: FGA score 27/30 Goal Time Frame: 2-4 Weeks Goal 4:: DHI score 4 or bettr Goal Time Frame: 2-4 Weeks Rehabilitation Potential Physical Therapy Diagnosis: dizzyness with position changes effecting comfortable function Rehabilitation Potential: Excellent Anticipated Interventions Patient/Client Instruction: Educate patient on: Condition and Plan of Care For the Purpose of:: To increase tolerance to activity/condition/position Comment: positional and balance x maneuvers For the Purpose of:: To increase tolerance to activity/condition/position Text: Thank you for the opportunity to evaluate your patient. For Medicare and Medicare HMO plans, please review the plan of care and approve it. It will need to be FAXED BACK to us at [phone] for Medicare purposes. For Medicare only, by signing this I certify the plan of care. Please let me know if there are questions or concerns regarding this plan of care. Physician Signature: Date:
--- NOTE | 2024-12-25 08:19 | HP.PTDCSUM_ITS ---
Discharge Summary D/C summary: It has been my pleasure to treat KARON EL referred by Dr. Pati Horvath MD, with the diagnosis of BPPV for a total of 3 visit(s). Discharge Date: 12/25/24 Please see the following information for a summary of their discharge status. Subjective Subjective: No problems with any activity and back to normal. Did exercises 4-5 days and was dizzy at first but not lately. Activities are normal adn sleeping normal . to doctor next week. Overall Improvement % Improvement: 100 Objective Objective/Function: - B hallpike mary kate - roll test today MSQ psoitions are dizzy free. Waking normal outside of R Leg vein laser procedure just performed, no balance problems. Goals Goal 1:: Abolish dizzyness for 4 days with head movements Goal Progress: Goal Met Goal 2:: - B hallpike mary kate testing Goal Progress: Goal Met Goal 3:: FGA score 27/30 Goal Progress: Goal Met Goal 4:: DHI score 4 or bettr Goal Progress: Goal Met Plan Plan: d/c D/C Information Discharge Comments: To doctor next week and symptoms currently abolished for di zzyness. d/c sentence: If there are questions or concerns regarding this patient's physical therapy, please feel free to call me at [phone]. Thank you for the referral of this patient. Sincerely, Lorenzo Farah, DPT, OCS, CSCS Balance/Gait/Functional tests Balance/Special Test Scores Functional Gait Assessment Score: 29 % Disability: 3.3400 Dizziness Score: 0 Improvement % Improvement: 100
== END 2024-12-25 19:00 | disposition home or self-care (01) ==
LOC: PT 08:00
PROVIDERS: PCP Internal Medicine; Referring Provider Internal Medicine; Visit Provider Internal Medicine
DX: H81.10 Benign paroxysmal vertigo, unspecified ear (principal)
CPT/HCPCS: 97161; 97164; 97530

== ENCOUNTER 2025-02-18 05:30 | Day surgery (SDC) | payer MEDICARE, SELFPAY ==
[2025-02-18] VITALS (7 sets, daily range): BP systolic 106–136; BP diastolic 57–74; PULSE 70–102; RESP 16; TEMP 36.5–36.9; O2SAT 94–100; BMI 30.9
[2025-02-18] MEDS: Lactated Ringers 1,000 ML 15 ML IV (06:08)
[2025-02-18 06:46] LABS: Bedside Glucose 152 mg/dL (74-106)
== END 2025-02-18 08:24 | disposition home or self-care (01) ==
LOC: EN 05:30 → AC 05:31
PROVIDERS: PCP Internal Medicine; Referring Provider Internal Medicine; Visit Provider Internal Medicine Gastroenterology
PROC: 0DJD8ZZ Inspection of Lower Intestinal Tract, Via Natural or Artificial Opening Endoscopic (ICD-10-PCS; CPT 45378; principal; 2025-02-18 06:25)
DX: Z12.11 Encounter for screening for malignant neoplasm of colon (principal); E11.9 Type 2 diabetes mellitus without complications; K59.01 Slow transit constipation; I10 Essential (primary) hypertension; E78.5 Hyperlipidemia, unspecified; K57.30 Diverticulosis of large intestine without perforation or abscess without bleeding; G47.30 Sleep apnea, unspecified; K63.89 Other specified diseases of intestine; Z79.82 Long term (current) use of aspirin; Z79.899 Other long term (current) drug therapy; D12.3 Benign neoplasm of transverse colon; D12.0 Benign neoplasm of cecum
CPT/HCPCS: 45385; 45380; 45382; 82962; 88305

== ENCOUNTER → 2025-07-20 | Outpatient (CLI) | payer MEDICARE, SELFPAY ==
--- NOTE | 2025-07-20 08:30 | RAD_ITS ---
EXAM: XR Right Ribs and AP Chest, 3 or More Views CLINICAL INDICATION: RIB PAIN TECHNIQUE: Frontal and oblique views of the right ribs and frontal view of the chest. COMPARISON: No relevant prior studies available. FINDINGS: LUNGS AND PLEURAL SPACES: Unremarkable. No consolidation. No pneumothorax. HEART: Unremarkable. No cardiomegaly. MEDIASTINUM: Unremarkable. Normal mediastinal contour. BONES/JOINTS: Unremarkable. No displaced rib fractures. RAD/Ribs Uni Min 3V w/PA Chest IMPRESSION: No displaced rib fractures. Reading Location: [facility]
== END | disposition home or self-care (01) ==
LOC: RAD 08:21
PROVIDERS: PCP Internal Medicine; Referring Provider Internal Medicine; Visit Provider Internal Medicine
DX: R07.89 Other chest pain (principal)
CPT/HCPCS: 71101